=== PATIENT | female | born 1955 | race Caucasian/White ===

== ENCOUNTER 2023-02-04 10:55 | Outpatient (AMB) | payer MEDICARE, SELFPAY ==
--- NOTE | 2023-02-04 10:57 | MHC.OFFVIS ---
Intake Vital Signs 02/04/23 11:04 Height 5 ft 6 in Weight 154 lb BMI 24.9 Intake Visit Reasons: right sciatic pain Intake Note: Pain today 07/16. 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 Patient reports her pain starts at the dorsum of her right foot with numbness, tingling, burning, pins and needles sensations which is easily aggravated by touch, wind, walking, movements and most intensified at night. Reports right foot heaviness, weakness and right foot drop since hip surgery. Patient cannot dorsiflex her right foot. She walks slow and lifts her right foot during walking. Patient reports she was using wheeled walker since hip surgery and now uses cane due to right lower leg weakness. Patient does not have AFO bracing today and will arrange for this with her Orthopedic provider. Patient reports she is heavily medicated on tramadol and Lyrica which controlls her pain but decreases her concentration and ability to take of herself, cook, personal care, daily activities and not able to sleep through the night due to pain. She lives with her son who she reports had to decrease his work hours to cloud engagement partner so he can take care of patient at home. Patient is active with physical therapy with hip precautions and states her hip has been recovering well. Patient denies any back, right hip or thigh pain. Denies any fever, abdominal or groin pain, bladder or bowel dysfunction or saddle anesthesia. EMG studies are scheduled on 03/11/[address] Chavez at [facility]. Location Right lower leg and foot pain Duration One month since right MARYANN 12/24/22 Characteristics of symptom or complaint Numbness, aching, burning, tingling Aggravating or associated factors Walking, attempting to dorsiflex her right foot/ankle, wind, touch Relieving factors Tamadol 50mg TID prn, Lyrica 300 mg, Tylenol Treatment PT currently active s/p recent right hip surgery [facility] Medical History (Updated 02/04/23 @ 11:43 by WILL Prakash) Arthropathy of right hip Review of Systems Const All systems reviewed & are unremarkable except as noted in HPI and below Physical Exam Vital Signs: BMI result Body Mass Index 24.9 General: Appears afebrile. Alert and oriented. Mood and affect appropriate. Follows and participates in conversation appropriately. Respiratory effort is unlabored. No cough. Able to transition from sit to stand unassisted. Uses cane with ambulation. Right foot drop, cannot dorsiflex. Lifts right foot with walking. Back/Spine/Pelvis Cervical Spine: cervical ROM normal and No Cervical spine tenderness Thoracic/Lumbar Spine: thoracic and lumbar spine normal to inspection, No Thoracic/lumbar spine scar(s), thoraco-lumbar ROM normal, Lasegue's sign negative, straight leg raise negative bilaterally, No thoracic spinal tenderness and No lumbar spinal tenderness Pelvis: no buttock tenderness and no sciatic notch tenderness Skin Other: Bilateral lower extremities: No changes in temperature, no skin color changes, mild hypersensitivity over dorsum and plantar surfaces of right foot. General skin exam: no rashes or lesions noted and turgor normal Extrem General: Yes capillary refill normal, Yes no clubbing, cyanosis or edema and Yes no calf tenderness Right lower extremity: lower leg (Reports burning, tingling, numbness dorsum and sole of Rt foot to lower leg) Details: no edema; no erythema, no tenderness, no localized swelling, no ecchymosis, no crepitus and no unusual warmth Assessment & Plan Assessment & Plan (1) Neuropathy of right peroneal nerve: Code(s): G57.31 - Lesion of lateral popliteal nerve, right lower limb (2) Foot drop, right: Code(s): M21.371 - Foot drop, right foot (3) Status post total replacement of right hip: Code(s): Z96.641 - Presence of right artificial hip joint Plan 1. Patient was advised to follow up with her Orthopedic office for consideration of placing her right ankle into AFO foot orthotics. 2. Trial of right common peroneal nerve temporary stimulator placement at the popliteal fossa with local and US guidance for right common peroneal neuropathy. Informational pamphlet was provided to patient. Expectations, risks and benefits were reviewed with patient. Patient is aware she will be contacted to schedule this procedure. All questions were answered and the patient is in agreement of plan. Follow up after Sprint trial and sooner as needed. Coding Level of Care Code New Pt Level 4 (83968) Diagnoses Neuropathy of right peroneal nerve G57.31 Foot drop, right M21.371 Status post total replacement of right hip Z96.641
[2023-02-04 11:04] VITALS: BMI 24.9
== END 2023-02-04 11:34 | disposition home or self-care (01) ==
PROVIDERS: PCP Internal Medicine; Visit Provider Nurse Practitioner Family
DX: G57.31 Lesion of lateral popliteal nerve, right lower limb (principal); M21.371 Foot drop, right foot; Z96.641 Presence of right artificial hip joint
CPT/HCPCS: 99204

== ENCOUNTER → 2023-02-04 10:55 | Outpatient (BNVA) | payer MEDICARE, SELFPAY | PROVIDERS: PCP Internal Medicine; Visit Provider Nurse Practitioner Family ==